=== PATIENT | male | born 1945 | race Caucasian/White ===

== ENCOUNTER 2020-06-20 22:08 | Inpatient (IN) | payer OTHER ==
[~2020-06-20 22:08] MED LIST: Iopamidol-370 76% 500 ML 1 ML ONE
[2020-06-20] MEDS ORDERED: niCARdipine 20MG In NaCl 20 MG/200 ML BAG ONE (22:33)
[2020-06-20 22:38] LABS: #Eosinphils 0.1 thou/uL (0.0-0.7); #Lymphocytes 1.6 thou/uL (1.20-3.40); #Monocytes 0.6 thou/uL (0.11-0.59); #Neutrophils 3.4 thou/uL (1.40-6.50); %Basophils 0.3 % (0.0-1.0); %Eosinophils 1.1 % (0.0-10.0); %Lymphocytes 28.3 % (21.0-51.0); %Monocytes 10.7 % (0.0-10.0); %Neutrophils 59.5 % (42.0-75.0); Hemoglobin 14.3 g/dL (14.0-18.0); Mean Corpuscular HGB CONC 34.9 g/dL (32.0-36.0); Mean Corpuscular Hemoglobin 32.5 pg (27.0-31.0); Mean Corpuscular Volume 93.1 fL (78.0-98.0); Mean Platelet Volume 7.1 fL (7.4-10.4); Platelet Count 232 thou/uL (130-400); RBC Distribution Width 11.6 % (11.5-14.5); Red Blood Cell (RBC) Count 4.41 mill/uL (4.70-6.10); White Blood Cell (WBC) Count 5.6 thou/uL (4.8-10.8)
[2020-06-20] MEDS ORDERED: Tranexamic Acid 1,000 MG/10 ML VIAL ONE (22:46)
[2020-06-20 22:52] LABS: PTT 28.6 sec (22.9-36.1); Prothrombin Time 13.1 sec (12.0-14.7)
[2020-06-20 22:59] LABS: ALT (SGPT) 23 U/L (8-55); AST (SGOT) 23 U/L (5-34); Albumin 4.2 g/dL (3.4-4.8); Alkaline Phosphatase 81 U/L (40-110); Anion Gap 13 mmol/L (10-20); BUN (Urea Nitrogen) 21 mg/dL (8.4-25.7); Bilirubin, Total 0.5 mg/dL (0.2-1.2); Calc. Creatinine Clearance 0 mL/min (70-130); Calcium 8.8 mg/dL (7.8-10.44); Carbon Dioxide 24 mmol/L (23-31); Chloride 103 mmol/L (98-107); Globulin 4.1 g/dL (2.4-3.5); Glucose 110 mg/dL (83-110); Potassium 3.7 mmol/L (3.5-5.1); Protein, Total 8.3 g/dL (5.8-8.1); Sodium 136 mmol/L (136-145)
[2020-06-20] MEDS ORDERED: Fentanyl 100 MCG/2 ML VIAL ONE (23:07)
[2020-06-20] MEDS ORDERED: Diltiazem 125 MG/25 ML ONE (23:18)
[2020-06-20] MEDS ORDERED: Heparin 10,000 UNITS/ 10 ML VIAL ONE (23:19)
[2020-06-20] MEDS ORDERED: Lidocaine 1% (PF) 30 ML VIAL ONE (23:20)
[2020-06-20] MEDS ORDERED: Phenylephrine 10 MG/ML VIAL ONE (23:41)
[2020-06-20] MEDS ORDERED: Dexamethasone 20 MG/5 ML VIAL ONE (23:43)
[2020-06-20] MEDS ORDERED: Rocuronium Bromide 10 MG/ML (10ML VIAL) ONE (23:43)
[2020-06-20] MEDS ORDERED: PROPOFOL 200 MG/20 ML VIAL ONE (23:43)
[2020-06-20] MEDS ORDERED: Ondansetron PF 4 MG/2 ML Vial ONE (23:43)
[2020-06-20] MEDS ORDERED: Lidocaine 1% PF 5 ML VIAL ONE (23:43)
[2020-06-20] MEDS ORDERED: Succinylcholine 200 MG/10 ml SYRINGE FS ONE (23:43)
[2020-06-20] MEDS ORDERED: SUGAMMADEX SODIUM 200 MG/2 ML VIAL ONE (23:59)
[2020-06-21] MEDS ORDERED: niCARdipine 25 MG in Sodium Chloride 0.9% 250 ML 240 ML IVPB PRN (00:44)
[2020-06-21] MEDS ORDERED: Acetaminophen 325 MG TAB PO PRN (00:44)
[2020-06-21] MEDS ORDERED: Ondansetron HCl/PF 4 MG/2 ML Vial IVP PRN (01:09)
[2020-06-21] MEDS ORDERED: Promethazine HCl 25 MG/ML VIAL IM PRN (01:09)
[2020-06-21] MEDS ORDERED: Promethazine HCl 25 MG/ML VIAL SLOW IVP PRN (01:09)
[2020-06-21] MEDS: Labetalol HCl 100 MG/20 ML VIAL SLOW IVP PRN ×3 (01:37→22:22)
[2020-06-21] MEDS: Communication Order-Pharmacy FS SCH (08:44)
[2020-06-21] MEDS ORDERED: Electrolyte Replacement Protocol 1 EACH FS SCH (09:31)
[2020-06-21] MEDS: hydrALAZINE 20 MG/ML VIAL SLOW IVP PRN ×2 (10:29→16:07)
[2020-06-21] MEDS: Diltiazem 125 MG in Sodium Chloride 0.9% 100 ML IVPB SCH (10:34)
[2020-06-21 10:47] LABS: Cardiac Risk 3.2 (Less than 4.5)
[2020-06-21] MEDS: Ondansetron PF 4 MG/2 ML Vial IVP PRN ×2 (10:48→15:13)
[2020-06-21] MEDS: Morphine 2 MG/ML VIAL SLOW IVP PRN (13:10)
[2020-06-21] MEDS ORDERED: Iopamidol 370 76% 50 ML VIAL FS ONE (13:23)
[2020-06-21] MEDS: Famotidine/PF 20 mg/2ml Vial SLOW IVP SCH (20:44)
[2020-06-21] MEDS: Atorvastatin Calcium 40 MG TAB PO SCH (20:45)
[2020-06-21] MEDS: Docusate 100 MG CAP PO SCH (20:45)
[2020-06-22] MEDS: Ondansetron PF 4 MG/2 ML Vial IVP PRN (01:10)
[2020-06-22] MEDS: Diltiazem 125 MG in Sodium Chloride 0.9% 100 ML IVPB SCH ×2 (01:21→17:04)
[2020-06-22] MEDS: Morphine 2 MG/ML VIAL SLOW IVP PRN (01:56)
[2020-06-22 03:37] LABS: #Lymphocytes 0.8 thou/uL (1.20-3.40); #Monocytes 1.2 thou/uL (0.11-0.59); %Basophils 0.3 % (0.0-1.0); %Eosinophils 0.1 % (0.0-10.0); %Lymphocytes 8.3 % (21.0-51.0); %Monocytes 11.5 % (0.0-10.0); %Neutrophils 79.8 % (42.0-75.0); Mean Corpuscular HGB CONC 35.9 g/dL (32.0-36.0); Mean Corpuscular Hemoglobin 33.6 pg (27.0-31.0); Mean Corpuscular Volume 93.7 fL (78.0-98.0); Mean Platelet Volume 7.3 fL (7.4-10.4); Platelet Count 223 thou/uL (130-400); RBC Distribution Width 12.2 % (11.5-14.5); Red Blood Cell (RBC) Count 4.17 mill/uL (4.70-6.10)
[2020-06-22 04:00] LABS: Anion Gap 12 mmol/L (10-20); BUN (Urea Nitrogen) 19 mg/dL (8.4-25.7); Calc. Creatinine Clearance 104 mL/min (70-130); Calcium 8.4 mg/dL (7.8-10.44); Carbon Dioxide 23 mmol/L (23-31); Cardiac Risk 3.2 (Less than 4.5); Chloride 105 mmol/L (98-107); Cholesterol 224 mg/dl (< 200 Desired); Glucose 157 mg/dL (83-110); HDL Cholesterol 69 mg/dL (>60 Neg Risk); LDL Cholesterol, Calculated 137 mg/dL; Potassium 3.7 mmol/L (3.5-5.1); Sodium 136 mmol/L (136-145); Triglycerides 90 mg/dL (Less than 150)
[2020-06-22] MEDS: Communication Order-Pharmacy FS SCH (08:00)
[2020-06-22 08:48] LABS: SARS-CoV-2 PCR by NAA Not Detected (NotDetected)
[2020-06-22] MEDS: Aspirin 325 mg Enteric Coated Tablet PO SCH (09:46)
[2020-06-22] MEDS: Docusate 100 MG CAP PO SCH ×2 (09:46→21:08)
[2020-06-22] MEDS: Enoxaparin Sodium 40 MG/0.4 ML SYRINGE SC SCH (10:02)
[2020-06-22] MEDS: Famotidine/PF 20 mg/2ml Vial SLOW IVP SCH ×2 (10:03→21:07)
[2020-06-22] MEDS: Aspirin 300 MG Suppository PR SCH (10:43)
[2020-06-22 14:07] LABS: Hemoglobin A1c 5.5 % (4.0-6.0)
[2020-06-22] MEDS: Atorvastatin Calcium 40 MG TAB PO SCH (21:08)
[2020-06-23 04:51] LABS: #Lymphocytes 1.8 thou/uL (1.20-3.40); #Monocytes 1.1 thou/uL (0.11-0.59); #Neutrophils 6.8 thou/uL (1.40-6.50); %Basophils 0.2 % (0.0-1.0); %Eosinophils 0.5 % (0.0-10.0); %Lymphocytes 18.3 % (21.0-51.0); %Monocytes 11.1 % (0.0-10.0); Hemoglobin 12.9 g/dL (14.0-18.0); Mean Corpuscular HGB CONC 34.9 g/dL (32.0-36.0); Mean Corpuscular Hemoglobin 32.8 pg (27.0-31.0); Mean Platelet Volume 7.4 fL (7.4-10.4); Platelet Count 200 thou/uL (130-400); RBC Distribution Width 12.1 % (11.5-14.5); Red Blood Cell (RBC) Count 3.94 mill/uL (4.70-6.10); White Blood Cell (WBC) Count 9.8 thou/uL (4.8-10.8)
[2020-06-23 05:13] LABS: Anion Gap 10 mmol/L (10-20); BUN (Urea Nitrogen) 22 mg/dL (8.4-25.7); Calc. Creatinine Clearance 97 mL/min (70-130); Calcium 8.1 mg/dL (7.8-10.44); Carbon Dioxide 25 mmol/L (23-31); Chloride 106 mmol/L (98-107); Glucose 108 mg/dL (83-110); Potassium 3.6 mmol/L (3.5-5.1); Sodium 137 mmol/L (136-145)
[2020-06-23] MEDS: Aspirin 300 MG Suppository PR SCH (07:14)
[2020-06-23] MEDS: Enoxaparin Sodium 40 MG/0.4 ML SYRINGE SC SCH ×2 (08:51→12:03)
[2020-06-23] MEDS: Famotidine/PF 20 mg/2ml Vial SLOW IVP SCH ×2 (08:51→20:49)
[2020-06-23] MEDS: Docusate 100 MG CAP PO SCH ×2 (08:51→20:49)
[2020-06-23] MEDS: Aspirin 325 mg Enteric Coated Tablet PO SCH (08:51)
[2020-06-23] MEDS: Diltiazem 125 MG in Sodium Chloride 0.9% 100 ML IVPB SCH (11:15)
[2020-06-23] MEDS: Atorvastatin Calcium 40 MG TAB PO SCH (20:49)
[2020-06-24] MEDS: Diltiazem 125 MG in Sodium Chloride 0.9% 100 ML IVPB SCH ×2 (02:06→21:24)
[2020-06-24 05:36] LABS: #Eosinphils 0.1 thou/uL (0.0-0.7); #Lymphocytes 1.3 thou/uL (1.20-3.40); #Neutrophils 5.6 thou/uL (1.40-6.50); %Basophils 0.2 % (0.0-1.0); %Lymphocytes 16.1 % (21.0-51.0); %Monocytes 12.6 % (0.0-10.0); %Neutrophils 70.2 % (42.0-75.0); Hemoglobin 12.6 g/dL (14.0-18.0); Mean Corpuscular HGB CONC 35.2 g/dL (32.0-36.0); Mean Corpuscular Volume 93.7 fL (78.0-98.0); Mean Platelet Volume 7.2 fL (7.4-10.4); Platelet Count 185 thou/uL (130-400); RBC Distribution Width 11.8 % (11.5-14.5); Red Blood Cell (RBC) Count 3.83 mill/uL (4.70-6.10); White Blood Cell (WBC) Count 7.9 thou/uL (4.8-10.8)
[2020-06-24 05:55] LABS: Anion Gap 11 mmol/L (10-20); BUN (Urea Nitrogen) 16 mg/dL (8.4-25.7); Calc. Creatinine Clearance 118 mL/min (70-130); Calcium 7.5 mg/dL (7.8-10.44); Carbon Dioxide 24 mmol/L (23-31); Chloride 105 mmol/L (98-107); Glucose 107 mg/dL (83-110); Potassium 3.2 mmol/L (3.5-5.1); Sodium 137 mmol/L (136-145)
[2020-06-24] MEDS ORDERED: Potassium Chloride 20 MEQ TAB PO SCH ×2 (06:30→09:15)
[2020-06-24] MEDS: Aspirin 300 MG Suppository PR SCH (09:13)
[2020-06-24] MEDS: Aspirin 325 mg Enteric Coated Tablet PO SCH (09:14)
[2020-06-24] MEDS: Enoxaparin Sodium 40 MG/0.4 ML SYRINGE SC SCH (09:14)
[2020-06-24] MEDS: Docusate 100 MG CAP PO SCH ×2 (09:14→21:22)
[2020-06-24] MEDS: Famotidine/PF 20 mg/2ml Vial SLOW IVP SCH ×2 (09:15→21:22)
[2020-06-24] MEDS: Atorvastatin Calcium 40 MG TAB PO SCH (21:22)
[2020-06-25 05:06] LABS: #Eosinphils 0.1 thou/uL (0.0-0.7); #Lymphocytes 1.8 thou/uL (1.20-3.40); #Monocytes 1.1 thou/uL (0.11-0.59); #Neutrophils 5.4 thou/uL (1.40-6.50); %Basophils 0.1 % (0.0-1.0); %Eosinophils 1.6 % (0.0-10.0); %Monocytes 12.7 % (0.0-10.0); %Neutrophils 64.6 % (42.0-75.0); Hemoglobin 12.9 g/dL (14.0-18.0); Mean Corpuscular Volume 94.2 fL (78.0-98.0); Mean Platelet Volume 7.5 fL (7.4-10.4); Platelet Count 198 thou/uL (130-400); Red Blood Cell (RBC) Count 4.01 mill/uL (4.70-6.10); White Blood Cell (WBC) Count 8.3 thou/uL (4.8-10.8)
[2020-06-25 05:14] LABS: Anion Gap 9 mmol/L (10-20); BUN (Urea Nitrogen) 15 mg/dL (8.4-25.7); Calc. Creatinine Clearance 122 mL/min (70-130); Calcium 7.9 mg/dL (7.8-10.44); Carbon Dioxide 22 mmol/L (23-31); Chloride 106 mmol/L (98-107); Glucose 112 mg/dL (83-110); Sodium 133 mmol/L (136-145)
[2020-06-25] MEDS: Aspirin 300 MG Suppository PR SCH (10:01)
[2020-06-25] MEDS: Docusate 100 MG CAP PO SCH ×2 (10:02→20:15)
[2020-06-25] MEDS: Aspirin 325 mg Enteric Coated Tablet PO SCH (10:02)
[2020-06-25] MEDS: Famotidine/PF 20 mg/2ml Vial SLOW IVP SCH ×2 (10:02→20:14)
[2020-06-25] MEDS: Enoxaparin Sodium 40 MG/0.4 ML SYRINGE SC SCH (10:02)
[2020-06-25] MEDS ORDERED: Losartan 25 MG TAB PO SCH (12:45)
[2020-06-25] MEDS: Atorvastatin Calcium 40 MG TAB PO SCH (20:14)
[2020-06-26] MEDS: Aspirin 300 MG Suppository PR SCH (10:31)
[2020-06-26] MEDS: Aspirin 325 mg Enteric Coated Tablet PO SCH (10:32)
[2020-06-26] MEDS: Docusate 100 MG CAP PO SCH ×2 (10:33→20:13)
[2020-06-26] MEDS: Famotidine/PF 20 mg/2ml Vial SLOW IVP SCH ×2 (10:33→20:13)
[2020-06-26] MEDS: Enoxaparin Sodium 40 MG/0.4 ML SYRINGE SC SCH (10:33)
[2020-06-26] MEDS: Losartan 25 MG TAB PO SCH (10:33)
[2020-06-26] MEDS ORDERED: Diltiazem HCl SR 90 mg Capsule PO SCH (11:45)
[2020-06-26] MEDS: Atorvastatin Calcium 40 MG TAB PO SCH (20:13)
[2020-06-27] MEDS: Losartan 25 MG TAB PO SCH (09:09)
[2020-06-27] MEDS: Aspirin 325 mg Enteric Coated Tablet PO SCH (09:09)
[2020-06-27] MEDS: Enoxaparin Sodium 40 MG/0.4 ML SYRINGE SC SCH (09:09)
[2020-06-27] MEDS: Famotidine/PF 20 mg/2ml Vial SLOW IVP SCH ×2 (09:09→20:36)
[2020-06-27] MEDS: Docusate 100 MG CAP PO SCH ×2 (09:10→20:35)
[2020-06-27] MEDS: Aspirin 300 MG Suppository PR SCH (09:14)
[2020-06-27 11:06] VITALS: BMI 33.5
[2020-06-27] MEDS: Atorvastatin Calcium 40 MG TAB PO SCH (20:36)
[2020-06-27] MEDS: Apixaban 5 MG TAB PO SCH (20:36)
[2020-06-28] MEDS: Docusate 100 MG CAP PO SCH ×2 (08:53→21:43)
[2020-06-28] MEDS: Apixaban 5 MG TAB PO SCH (08:53)
[2020-06-28] MEDS: Aspirin 325 mg Enteric Coated Tablet PO SCH ×2 (08:53→11:11)
[2020-06-28] MEDS: Losartan 25 MG TAB PO SCH (08:53)
[2020-06-28] MEDS: Aspirin 300 MG Suppository PR SCH (08:54)
[2020-06-28] MEDS: Famotidine/PF 20 mg/2ml Vial SLOW IVP SCH (08:54)
[2020-06-28] MEDS: Atorvastatin Calcium 40 MG TAB PO SCH (21:43)
[2020-06-28 22:32] LABS: #Eosinphils 0.2 thou/uL (0.0-0.7); #Lymphocytes 1.2 thou/uL (1.20-3.40); #Monocytes 0.8 thou/uL (0.11-0.59); #Neutrophils 3.8 thou/uL (1.40-6.50); %Basophils 0.1 % (0.0-1.0); %Eosinophils 3.5 % (0.0-10.0); %Monocytes 12.8 % (0.0-10.0); %Neutrophils 63.6 % (42.0-75.0); Hemoglobin 12.5 g/dL (14.0-18.0); Mean Corpuscular HGB CONC 34.1 g/dL (32.0-36.0); Mean Corpuscular Hemoglobin 31.9 pg (27.0-31.0); Mean Corpuscular Volume 93.4 fL (78.0-98.0); Mean Platelet Volume 7.1 fL (7.4-10.4); Platelet Count 245 thou/uL (130-400); RBC Distribution Width 11.9 % (11.5-14.5); Red Blood Cell (RBC) Count 3.92 mill/uL (4.70-6.10)
[2020-06-28 22:34] LABS: PTT 30.7 sec (22.9-36.1); Prothrombin Time 13.8 sec (12.0-14.7)
[2020-06-28 22:47] LABS: ALT (SGPT) 21 U/L (8-55); AST (SGOT) 25 U/L (5-34); Albumin 3.3 g/dL (3.4-4.8); Alkaline Phosphatase 73 U/L (40-110); Anion Gap 10 mmol/L (10-20); BUN (Urea Nitrogen) 13 mg/dL (8.4-25.7); Calc. Creatinine Clearance 111 mL/min (70-130); Carbon Dioxide 24 mmol/L (23-31); Chloride 102 mmol/L (98-107); Globulin 3.3 g/dL (2.4-3.5); Glucose 117 mg/dL (83-110); Potassium 3.3 mmol/L (3.5-5.1); Protein, Total 6.6 g/dL (5.8-8.1); Sodium 133 mmol/L (136-145)
[2020-06-29 05:02] LABS: Prothrombin Time 13.5 sec (12.0-14.7)
[2020-06-29] MEDS ORDERED: Potassium Chloride 20 MEQ TAB PO SCH (07:00)
[2020-06-29] MEDS: Docusate 100 MG CAP PO SCH ×2 (08:59→20:50)
[2020-06-29] MEDS: Losartan 25 MG TAB PO SCH (08:59)
[2020-06-29] MEDS: Enoxaparin Sodium 100 MG/ML SYRINGE SC SCH ×2 (09:05→20:51)
[2020-06-29] MEDS: Warfarin Sodium 10 MG TAB PO SCH (16:54)
[2020-06-29] MEDS ORDERED: Warfarin Sodium 5 MG TAB PO SCH (17:00)
[2020-06-29] MEDS: Atorvastatin Calcium 40 MG TAB PO SCH (20:50)
[2020-06-29] MEDS: diphenhydrAMINE 25 MG CAP PO PRN (20:52)
[2020-06-30 05:05] LABS: Prothrombin Time 13.4 sec (12.0-14.7)
[2020-06-30] MEDS: diphenhydrAMINE 25 MG CAP PO PRN (05:39)
[2020-06-30] MEDS: Levothyroxine Sodium 100 MCG TAB PO SCH (05:39)
[2020-06-30] MEDS: Losartan 25 MG TAB PO SCH (08:52)
[2020-06-30] MEDS: Enoxaparin Sodium 100 MG/ML SYRINGE SC SCH ×2 (08:52→21:01)
[2020-06-30] MEDS: Docusate 100 MG CAP PO SCH ×2 (08:52→21:01)
[2020-06-30 09:19] LABS: Anion Gap 11 mmol/L (10-20); BUN (Urea Nitrogen) 14 mg/dL (8.4-25.7); Calc. Creatinine Clearance 105 mL/min (70-130); Calcium 8.2 mg/dL (7.8-10.44); Carbon Dioxide 22 mmol/L (23-31); Chloride 104 mmol/L (98-107); Glucose 118 mg/dL (83-110); Sodium 133 mmol/L (136-145)
[2020-06-30] MEDS: Warfarin Sodium 10 MG TAB PO SCH (17:25)
[2020-06-30] MEDS: Atorvastatin Calcium 40 MG TAB PO SCH (21:01)
[2020-07-01 05:35] LABS: Hemoglobin 12.1 g/dL (14.0-18.0); INR-International Normal Ratio 1.1; Platelet Count 239 thou/uL (130-400); Prothrombin Time 14.1 sec (12.0-14.7)
[2020-07-01] MEDS: Levothyroxine Sodium 100 MCG TAB PO SCH (05:55)
[2020-07-01] MEDS: Losartan 25 MG TAB PO SCH (08:16)
[2020-07-01] MEDS: Docusate 100 MG CAP PO SCH ×2 (08:16→20:43)
[2020-07-01] MEDS: Enoxaparin Sodium 100 MG/ML SYRINGE SC SCH ×2 (08:16→20:43)
[2020-07-01] MEDS ORDERED: Morphine 2 MG/ML VIAL SLOW IVP PRN (15:23)
[2020-07-01] MEDS: Warfarin Sodium 10 MG TAB PO SCH (18:01)
[2020-07-01] MEDS: Atorvastatin Calcium 40 MG TAB PO SCH (20:43)
[2020-07-02] MEDS: Levothyroxine Sodium 100 MCG TAB PO SCH (05:43)
[2020-07-02 05:53] LABS: INR-International Normal Ratio 1.3; Prothrombin Time 16.4 sec (12.0-14.7)
[2020-07-02] MEDS: Losartan 25 MG TAB PO SCH (10:09)
[2020-07-02] MEDS: Docusate 100 MG CAP PO SCH (10:09)
[2020-07-02] MEDS: Enoxaparin Sodium 100 MG/ML SYRINGE SC SCH (10:10)
[2020-07-02 11:18] VITALS: BP 131/62; TEMP 98
== END 2020-07-02 12:30 | DRG 23 ==
LOC: ERS 22:08 → CCU 23:38 → SDC/OP 23:39 → EEVIPCON 06-21 00:05 → CCU 06-21 00:05 → SDC/OP 06-21 01:03 → 2SE 06-22 09:41
PROVIDERS: ADMIT Neurological Surgery; ATTEND Internal Medicine
PROC: 4A023N7 Measurement of Cardiac Sampling and Pressure, Left Heart, Percutaneous Approach (ICD-10-PCS; principal; 2020-06-20)
PROC: B2111ZZ Fluoroscopy of Multiple Coronary Arteries using Low Osmolar Contrast (ICD-10-PCS; 2020-06-20)
PROC: 03CG3ZZ Extirpation of Matter from Intracranial Artery, Percutaneous Approach (ICD-10-PCS; 2020-06-21)
PROC: 3E05317 Introduction of Other Thrombolytic into Peripheral Artery, Percutaneous Approach (ICD-10-PCS; 2020-06-21)
DX: I63.419 Cerebral infarction due to embolism of unspecified middle cerebral artery (principal); G93.41 Metabolic encephalopathy; I16.1 Hypertensive emergency; G81.94 Hemiplegia, unspecified affecting left nondominant side; I48.20 Chronic atrial fibrillation, unspecified; Z20.822 Contact with and (suspected) exposure to COVID-19; E03.9 Hypothyroidism, unspecified; I25.10 Atherosclerotic heart disease of native coronary artery without angina pectoris; M19.90 Unspecified osteoarthritis, unspecified site; D64.9 Anemia, unspecified; R29.707 NIHSS score 7; E78.5 Hyperlipidemia, unspecified; E78.00 Pure hypercholesterolemia, unspecified; Z96.642 Presence of left artificial hip joint; R29.810 Facial weakness; E11.9 Type 2 diabetes mellitus without complications; I11.9 Hypertensive heart disease without heart failure; R23.3 Spontaneous ecchymoses; Z88.8 Allergy status to other drugs, medicaments and biological substances; Z79.82 Long term (current) use of aspirin; Z79.899 Other long term (current) drug therapy
CPT/HCPCS: 36415; 37197; 70450; 70496; 70498; 80048; 80053; 80061; 83036; 83735; 84443; 84484; 85014; 85018; 85025; 85049; 85610; 85730; 87635; 93005; 93306; 95712; 95819; 95957; 96365; 96374; 96375; 96376; C1887; J0360; J1100; J1644; J1650; J2001; J2270; J2370; J2405; J2704; J2997; J3010; J3490; Q0163; Q9967; S0028; U0003; U0005